=== PATIENT | female | born 1945 | race Caucasian/White ===

== ENCOUNTER 2018-11-17 08:31 | Inpatient (IN) | payer MEDICARE ==
[2018-11-09 11:35] LABS: BASOPHILS % (AUTO) 0.5 % (0-1); EOSINOPHILS # (AUTO) 0.2 X10'3 (0-0.9); EOSINOPHILS % (AUTO) 3.4 % (0-6); LYMPHOCYTES # (AUTO) 0.8 X10'3 (1.1-4.8); LYMPHOCYTES % (AUTO) 17.9 % (21-51); MEAN CORPUSCULAR HEMOGLOBIN 30.3 PG (27.0-31.0); MEAN CORPUSCULAR HGB CONC 33.5 g/dL (33.0-36.5); MEAN CORPUSCULAR VOLUME 90.4 FL (78-98); MEAN PLATELET VOLUME 8.2 FL (7.4-10.4); MONOCYTES # (AUTO) 0.4 X10'3 (0-0.9); MONOCYTES % (AUTO) 8.4 % (2-12); NEUTROPHILS # (AUTO) 3.2 X10'3 (1.8-7.7); NEUTROPHILS % (AUTO) 69.8 % (42-75); PRE OP HEMATOCRIT 40.7 % (35.0-45.0); PRE OP HEMOGLOBIN 13.7 g/dL (12.0-16.0); PRE OP PLATELET COUNT 216 X10'3 (140-440); RED CELL DISTRIBUTION WIDTH 13.8 % (11.5-14.5)
[2018-11-09 11:44] LABS: ALBUMIN/GLOBULIN RATIO 1.5 (1.1-1.5); ALKALINE PHOSPHATASE 52 IU/L (46-116); BLOOD UREA NITROGEN 13 MG/DL (7-18); BUN/CREATININE RATIO 15.9 (6.6-38.0); CALCIUM 9.3 MG/DL (8.5-10.1); CHLORIDE 106 MMOL/L (99-107); CREATININE 0.82 MG/DL (0.40-0.90); PRE OP ALT 37 U/L (30-65); PRE OP ANION GAP 5 (8-16); PRE OP AST 16 U/L (10-37); PRE OP BILIRUB, TOTAL 0.3 MG/DL (0.0-1.0); PRE OP GLUCOSE 105 MG/DL (70-104); PRE OP POTASSIUM 3.9 MMOL/L (3.4-5.1); PRE OP SODIUM 141 MMOL/L (135-145); TOTAL CARBON DIOXIDE 30.4 MMOL/L (24-32); TOTAL PROTEIN 6.7 G/DL (6.4-8.2); eGFR 68 ML/MIN
[2018-11-17] VITALS (16 sets, daily range): BP systolic 113–148; BP diastolic 42–84
[~2018-11-17] VITALS: Ht 172.7 cm; Wt 79.4 kg
[~2018-11-17 08:31] MED LIST: ATOR10TA87 PO; CHOL10002 PO; CYAN1TAB41 PO; GLUC100017 PO; SYN0.025T PO; VANCOMYCIN INJ 1000 MG in NORMAL SALINE 250ml IV.SOLN IV ONE; acetaminophen 325mg tablet PO ONE; ascorbic acid 500mg tablet PO ONE; ceFAZolin 2gm in dextrose, iso 100 ML IV ONE; celeCOXIB 100mg capsule PO ONE; famotidine 20mg tablet PO ONE; gabapentin 300mg capsule PO ONE; metoclopramide 5 mg/ml inj IV ONE; oxyCODONE SR 10mg (sust. release) tab -2 tabs (20mg) PO ONE; oxyCODONE SR 10mg (sust. release) tab PO ONE
[2018-11-17] MEDS: ringers solution, lacted 1,000 ML IV SCH ×3 (09:01→23:40)
[2018-11-17] MEDS ORDERED: BUPIVAcaine/PF 2.5 mg/ml (0.25%) 30ml vial ONE (09:24)
[2018-11-17] MEDS ORDERED: sevoflurane 250ml liquid IH ONE (10:02)
[2018-11-17] MEDS ORDERED: ceFAZolin 1000mg inj ONE (10:02)
[2018-11-17] MEDS ORDERED: midazolam 2 mg/2 ml injection ONE ×2 (10:07)
[2018-11-17] MEDS ORDERED: fentaNYL/PF 50MCG/1 ML 2ML syringe ONE (10:07)
[2018-11-17] MEDS ORDERED: ePHEDrine 50MG/ML INJ. ONE (10:55)
[2018-11-17] MEDS ORDERED: ROPIVAcaine 0.5% (5mg/ml) 30ml vial ONE (10:57)
[2018-11-17] MEDS ORDERED: LIDOcaine 1%/PF 5ML 10 MG/ML VIAL ONE (10:57)
[2018-11-17] MEDS ORDERED: ondansetron/PF 4mg/2ml inj ONE (10:57)
[2018-11-17] MEDS ORDERED: propofol inj 20 ML IV ONE (10:57)
[2018-11-17] MEDS ORDERED: dexamethasone sod phosphate 4mg/ml inj. ONE (10:57)
[2018-11-17] MEDS ORDERED: ringers solution, lacted 1,000 ML IV SCH (11:16)
[2018-11-17] MEDS ORDERED: HYDROmorphone inj. 0.5 MG/0.5 ML DISP.SYRIN IV PRN (11:20)
[2018-11-17] MEDS ORDERED: ondansetron/PF 4mg/2ml inj IV PRN ×2 (11:20→11:50)
[2018-11-17] MEDS ORDERED: morphine 4 MG/ML inj SYRINge IV PRN (11:20)
[2018-11-17] MEDS ORDERED: HYDROcodone/acetaminophen 10/325mg tab PO PRN ×2 (11:50)
[2018-11-17] MEDS ORDERED: metoclopramide 5 mg/ml inj IV PRN (11:50)
[2018-11-17] MEDS ORDERED: acetaminophen 325mg tablet PO PRN (11:50)
[2018-11-17] MEDS ORDERED: bisacodyl 10mg suppository rectal RC PRN (11:50)
[2018-11-17] MEDS ORDERED: CADD PCA waste documentation MC PRN (11:50)
[2018-11-17] MEDS ORDERED: naloxone 0.4 mg/ml inj IV PRN (11:50)
[2018-11-17] MEDS ORDERED: diphenhydrAMINE 25mg capsule PO PRN ×2 (11:50)
[2018-11-17] MEDS ORDERED: magnesium hydroxide 30ml (MOM) UD suspension PO PRN (11:50)
--- NOTE | 2018-11-17 12:07 | NUR ---
Received from OR via ORTHO BED [facility]Y [facility]MON , accompanied by Anesthesiologist EVELIA and report given by Anesthesiolgist. PATIENT WITH 20G PIV IN LEFT UE RUNNING LR AT 100. DELANEY DE [place] SPLINT TO RIGHT FOOT AND ANKLE AREA. ELEVATED. + CAP REFILL TO ALL TOES. 10L MASK ON WITH 98% SATURAITONS. VSS. DENIES PAIN. Addendum: 11/17/18 at 1224 by Claudy Lund RN, RN Amended: Links added.
[2018-11-17] MEDS: gabapentin 300mg capsule PO SCH ×2 (13:00→20:17)
--- NOTE | 2018-11-17 13:07 | NUR ---
Report called to receiving nurse. Transferred via ORTHO BED WITH ONE BAG OF Belongings AND WEARING A PAIR OF GLASSES. Special Issues communicated to receiving nurse ALMAS NARAVEZ.VSS. BED LOW. CALL LIGHT PRESENT. DENIES PAIN. FOOT OF BED GATCHED. + CAP REFILLS TO RIGHT FOOT. SPOUSE AT BEDSIDE WITH PATIENT. PATIENT IV INTACT. Addendum: 11/17/18 at 1336 by Claudy Lund RN RN Amended: Links added.
[2018-11-17] MEDS: HYDROmorphone/NS 1 mg/ml CADD 50 ML IV SCH ×6 (13:15→23:00)
--- NOTE | 2018-11-17 13:15 | NUR ---
ASSUMED CARE, RECEIVED REPORT FROM CARSON NARVAEZ, PATIENT A&O X4, POST OP VSS STARTED, REPORTS 0/10 PAIN, WILL CONTINUE TO MONITOR.
[2018-11-17] MEDS: acetaminophen 325mg tablet PO SCH ×2 (14:00→20:17)
[2018-11-17] MEDS: potassium cl 20mEq in 1/2 NS 1,000 ML IV SCH ×2 (15:59→19:49)
[2018-11-17] MEDS: ceFAZolin 1GM/D5W- ADD-VANTAGE 50 ML IV SCH (15:59)
--- NOTE | 2018-11-17 18:10 | NUR ---
Problems reprioritized. Patient report given, questions answered & plan of care reviewed with REJI NARVAEZ.
--- NOTE | 2018-11-17 19:00 | NUR ---
Patient in room ORTH[facility] 4013. I have received report from am RN and had the opportunity to ask questions and assume patient care.
[2018-11-17] MEDS ORDERED: vancomycin/NS 1 GM ADD-VANTAGE 250 ML IV SCH (20:00)
[2018-11-17] MEDS ORDERED: sennosides/docusate sodium tablet PO SCH (20:00)
[2018-11-17] MEDS: ascorbic acid 500mg tablet PO SCH (20:18)
[2018-11-17] MEDS ORDERED: sennosides 8.6mg tablet PO SCH (21:00)
[2018-11-18] MEDS: ceFAZolin 1GM/D5W- ADD-VANTAGE 50 ML IV SCH (00:02)
[2018-11-18] MEDS: potassium cl 20mEq in 1/2 NS 1,000 ML IV SCH (00:45)
[2018-11-18] MEDS: HYDROmorphone/NS 1 mg/ml CADD 50 ML IV SCH ×3 (01:00→05:00)
[2018-11-18 02:00] VITALS: BP 127/71
[2018-11-18] MEDS: acetaminophen 325mg tablet PO SCH ×2 (02:26→09:17)
[2018-11-18 05:52] LABS: BASOPHILS # (AUTO) 0.1 X10'3 (0-0.2); BASOPHILS % (AUTO) 0.5 % (0-1); EOSINOPHILS % (AUTO) 0 % (0-6); HEMATOCRIT 38.3 % (35.0-45.0); HEMOGLOBIN 12.8 g/dl (12.0-16.0); LYMPHOCYTES # (AUTO) 0.5 X10'3 (1.1-4.8); LYMPHOCYTES % (AUTO) 4.2 % (21-51); MEAN CORPUSCULAR HEMOGLOBIN 30.4 PG (27.0-31.0); MEAN CORPUSCULAR HGB CONC 33.4 g/dL (33.0-36.5); MEAN CORPUSCULAR VOLUME 90.8 FL (78-98); MONOCYTES # (AUTO) 0.7 X10'3 (0-0.9); MONOCYTES % (AUTO) 6.4 % (2-12); NEUTROPHILS # (AUTO) 9.7 X10'3 (1.8-7.7); NEUTROPHILS % (AUTO) 88.9 % (42-75); PLATELET COUNT 183 X10'3 (140-440); RED BLOOD COUNT 4.21 X10'6 (4.20-5.60); RED CELL DISTRIBUTION WIDTH 13.6 % (11.5-14.5); WHITE BLOOD COUNT 10.9 X10'3 (4.5-11.0)
[2018-11-18 06:06] LABS: ANION GAP 5 (8-16); CHLORIDE 108 MMOL/L (99-107); POTASSIUM 4.7 MMOL/L (3.5-5.1); SODIUM 141 MMOL/L (135-145); TOTAL CARBON DIOXIDE 27.9 MMOL/L (24-32)
--- NOTE | 2018-11-18 06:18 | NUR ---
Patient in room ORTH[facility] 4013. I have received report from REJI NARVAEZ and had the opportunity to ask questions and assume patient care.
[2018-11-18 07:00] VITALS: BP 139/69
[2018-11-18] MEDS ORDERED: folic acid 1mg tablet PO SCH (08:00)
[2018-11-18] MEDS ORDERED: non-formulary drug (Cholecalciferol (Vitamin D3) (Vitamin D3) 1 TAB) PO SCH (08:00)
[2018-11-18] MEDS ORDERED: vitamin D (cholecalciferol) 1,000 unit tablet PO SCH (08:00)
[2018-11-18] MEDS ORDERED: enoxaparin 40mg/0.4ml syringe SQ SCH (08:00)
[2018-11-18] MEDS ORDERED: multivitamins, therapeutics tablet PO SCH (08:00)
[2018-11-18] MEDS ORDERED: CYANOCOBALAMIN PO SCH (08:00)
[2018-11-18] MEDS ORDERED: FOLIC ACID PO SCH (08:00)
[2018-11-18] MEDS ORDERED: levoTHYROXINE 25mcg tablet PO SCH (08:00)
[2018-11-18] MEDS ORDERED: cyanocobalamin 500mcg tablet PO SCH (08:00)
[2018-11-18] MEDS ORDERED: atorvastatin 10mg tablet PO SCH (08:00)
[2018-11-18] MEDS: ascorbic acid 500mg tablet PO SCH (09:16)
[2018-11-18] MEDS: gabapentin 300mg capsule PO SCH (09:16)
[2018-11-18 10:23] VITALS: BP 136/54
[2018-11-18] MEDS ORDERED: ASPI-1264 PO (13:05)
== END 2018-11-18 13:30 | disposition home or self-care (01) | DRG 494 ==
LOC: PAS 08:31 → ORTHO 4S 11:49
PROVIDERS: ADMIT Orthopaedic Surgery; ATTEND Orthopaedic Surgery
PROC: 0SGF0KZ Fusion of Right Ankle Joint with Nonautologous Tissue Substitute, Open Approach (ICD-10-PCS; 2018-11-17)
PROC: 0LQN0ZZ Repair Right Lower Leg Tendon, Open Approach (ICD-10-PCS; 2018-11-17)
PROC: 0LBS0ZZ Excision of Right Ankle Tendon, Open Approach (ICD-10-PCS; principal; 2018-11-17 10:02)
DX: M19.071 Primary osteoarthritis, right ankle and foot (principal); E78.5 Hyperlipidemia, unspecified; F41.9 Anxiety disorder, unspecified; I10 Essential (primary) hypertension; K21.9 Gastro-esophageal reflux disease without esophagitis; E03.9 Hypothyroidism, unspecified; G47.00 Insomnia, unspecified; K57.90 Diverticulosis of intestine, part unspecified, without perforation or abscess without bleeding; M76.71 Peroneal tendinitis, right leg; S86.311A Strain of muscle(s) and tendon(s) of peroneal muscle group at lower leg level, right leg, initial encounter; X58.XXXA Exposure to other specified factors, initial encounter; E66.8 Other obesity; Z96.661 Presence of right artificial ankle joint; Z90.49 Acquired absence of other specified parts of digestive tract; Z98.41 Cataract extraction status, right eye; Z88.1 Allergy status to other antibiotic agents; Z79.899 Other long term (current) drug therapy; Z79.890 Hormone replacement therapy; Z98.42 Cataract extraction status, left eye; Z87.891 Personal history of nicotine dependence; Y93.89 Activity, other specified; Y92.89 Other specified places as the place of occurrence of the external cause; Y99.8 Other external cause status; Z68.26 Body mass index [BMI] 26.0-26.9, adult
CPT/HCPCS: 36415; 73600; 76000; 80051; 80053; 82948; 85025; 97116; 97161; A6250; A6449; A7000; C1713; G0378; J0690; J1100; J1650; J2001; J2250; J2405; J2704; J2765; J2795; J3010; J3370; J3490; J7060; J7120